=== PATIENT | male | born 1965 | race Hispanic/Latino ===

== ENCOUNTER 2020-02-13 17:39 | Emergency (ER) | payer BC ==
[2020-02-13] MEDS ORDERED: ONDANSETRON 4 MG/2 ML VIAL ONE (18:09)
[2020-02-13] MEDS ORDERED: MORPHINE 4 MG/ML SYR ONE ×3 (18:09→20:42)
--- NOTE | 2020-02-13 19:06 | RAD REPORT ---
EXAM DESCRIPTION: RAD - Chest Single View - 02/13/2020 6:32 pm CLINICAL HISTORY: fall, shoulder pain COMPARISON: None TECHNIQUE: AP portable chest image was obtained 02/13/2020 6:32 pm . FINDINGS: Lungs are clear. Heart and vasculature are normal. No measurable pleural effusion and no p neumothorax. Old left clavicle fracture remodeling noted in the midshaft. There is evidence for posts urgical change to the head of the clavicle which widens the left AC joint. Left femoral head is dislo cated and further detailed on separate report. No acute aortic findings suspected. IMPRESSION: No acute cardiopulmonary process. Left humerus dislocation separately reported.
--- NOTE | 2020-02-13 19:08 | RAD REPORT ---
EXAM DESCRIPTION: RAD - Shoulder Left 2 View - 02/13/2020 6:32 pm CLINICAL HISTORY: fall, shoulder pain COMPARISON: No comparisons TECHNIQUE: Internal and external rotation views of the left shoulder were obtained. FINDINGS: Left humeral head is dislocated medial and inferior to the glenohumeral joint, typical for anterior dislocation. No fracture of the proximal humerus identified. Old fracture remodeling presen t in the midshaft left clavicle with postsurgical changes present to the left head of the clavicle. N o abnormal soft tissue calcifications. IMPRESSION: Anterior dislocation left humerus. No fracture identified.
--- NOTE | 2020-02-13 19:41 | RAD REPORT ---
EXAM DESCRIPTION: RAD - Shoulder Left 2 View - 02/13/2020 7:05 pm CLINICAL HISTORY: post reduction COMPARISON: Left shoulder same date TECHNIQUE: Internal and external rotation views of the left shoulder were obtained. FINDINGS: Humerus has been reduced to anatomic position. No acute fracture changes identified. No change to the surgically altered AC joint. IMPRESSION: Successful reduction of the left humeral head anatomic position.
[2020-02-13] MEDS ORDERED: LIDOCAINE 1% MPF 30 ML VIAL ONE (19:43)
[2020-02-13] MEDS ORDERED: TETANUS & DIPHTHERIA TOX,ADULT 0.5 ML VIAL ONE (20:31)
--- NOTE | 2020-02-13 20:41 | EDPHYS ---
Physician Documentation [facility] Name: Edwin Maxwell Age: 54 yrs Sex: Male : 1965 Arrival Date: 02/13/2020 Time: 17:40 Bed 3 Private MD: ED Physician Nilo Serrano HPI: 02/12 17:58 This 54 yrs old Male presents to ER via EMS with complaints of shoulder pain, fall. jmm 17:58 Onset: The symptoms/episode began/occurred acutely, just prior to arrival. Associated jmm injuries: The patient sustained injury to the head, injury to the chest. This is a 54 year old male with a history of htn that presents to the ED with complaints of left shoulder pain after [place] Denies LOC. Abrasion noted to the left side of the head. . Historical: - Allergies: 17:45 No Known Allergies; em - PMHx: 17:45 Hypertension; em - PSHx: 17:45 None; em - Immunization history:: Last tetanus immunization: unknown. - Social history:: Smoking status: Patient denies any tobacco usage or history of. ROS: 17:58 Constitutional: Negative for fever, chills, and weight loss, Cardiovascular: Negative jmm for chest pain, palpitations, and edema, Respiratory: Negative for shortness of breath, cough, wheezing, and pleuritic chest pain. 17:58 MS/extremity: Positive for pain. 17:58 All other systems are negative. Exam: 17:58 Constitutional: This is a well developed, well nourished patient who is awake, alert, jmm and in no acute distress. 17:58 Eyes: EOMI, no conjunctival erythema appreciated ENT: Moist Mucus Membranes Neck: Trachea midline, Supple 17:58 Cardiovascular: Regular rate and rhythm. No edema appreciated Respiratory: Normal respirations, no respiratory distress appreciated Abdomen/GI: Non distended, soft Back: Normal ROM Skin: General appearance color normal 17:58 Head/face: abrasion noted to the left confucianism. 17:58 Chest/axilla: left clavicular tenderness. 17:58 Musculoskeletal/extremity: left shoulder held in adduction and internal rotation. 17:58 Skin: Appearance: Color: normal in color. 17:58 Neuro: Orientation: is normal, Mentation: is normal, Memory: is normal. 17:58 Psych: Behavior/mood is pleasant, cooperative. Vital Signs: 17:40 Pulse 60; Resp 18; Temp 98.4(O); Pulse Ox 99% on R/A; Weight 90.72 kg; Height 5 ft. 11 em in. (180.34 cm); Pain 10/10; 18:01 BP 139 / 86; iw 19:28 BP 128 / 78; Pulse 60; Resp 18; Pulse Ox 99% ; ea 21:00 BP 120 / 80; Pulse 60; Resp 18; Temp 97.8; Pulse Ox 98% ; ea 17:40 Body Mass Index 27.89 (90.72 kg, 180.34 cm) em Procedures: 20:37 Reduction: of the left shoulder, using traction, manipulation, Immobilized with [facility] shoulder immobilizer. Patient tolerated well. Post reduction film - reveals normal alignment. Laceration: 20:36 Wound Repair of 1cm ( 0.4in ) subcutaneous laceration to left hand. Distal [facility] neuro/vascular/tendon intact. Anesthesia: Local anesthetic administered with 1 mls of 1% lidocaine. Wound prep: Moderate cleansing with betadine by me. Skin closed with 2 5-0 Prolene using loosely approximated. Patient tolerated well. MDM: 17:40 Patient medically screened. [facility] 20:37 Data reviewed: vital signs, nurses notes. Counseling: I had a detailed discussion with [facility] the patient and/or guardian regarding: the historical points, exam findings, and any diagnostic results supporting the discharge/admit diagnosis, lab results, radiology results, the need for outpatient follow up, to return to the emergency department if symptoms worsen or persist or if there are any questions or concerns that arise at home. ED course: Patient given wound infection return precautions. Patient otherwise advised to follow up with ortho for further evaluation. Patient understood and agrees with the plan of care. . 02/12 17:43 Order name: Chest Single View XRAY; Complete Time: 19:11 [facility] 02/12 17:43 Order name: Shoulder Left (2 View) XRAY; Complete Time: 19:11 [facility] 02/12 18:44 Order name: Shoulder Left (2 View) XRAY; Complete Time: 19:58 [facility] 02/12 17:42 Order name: Saline Lock; Complete Time: 18:01 [facility] 02/12 18:45 Order name: Shoulder Immobilizer; Complete Time: 19:28 prudence Administered Medications: 18:00 Drug: Zofran (Ondansetron) 4 mg Route: IVP; Site: right antecubital; iw 19:00 Follow up: Response: No adverse reaction ea 18:01 Drug: morphine 4 mg Route: IVP; Site: right antecubital; iw 19:00 Follow up: Response: No adverse reaction; RASS: Alert and Calm (0) ea 18:24 Drug: morphine 4 mg Route: IVP; Site: right antecubital; iw 19:40 Follow up: Response: No adverse reaction; RASS: Alert and Calm (0) ea 20:12 Drug: Lidocaine (1 %) 20 ml {Note: administered by provider .} Volume: 20 ml; Route: rv Infiltration; 20:45 Drug: Tetanus-Diphtheria Toxoid Adult 0.5 ml {Life Skills Trainer: [employer]. Exp: ea 04/27/2021. Lot #: [id number]. } Route: IM; Site: right deltoid; 21:10 Follow up: Response: No adverse reaction ea 20:51 Drug: Doxycycline 100 mg Route: PO; ea 21:10 Follow up: Response: No adverse reaction ea 20:51 Drug: morphine 4 mg {Note: RASS 0.} Route: IVP; Site: right antecubital; ea 21:10 Follow up: Response: No adverse reaction; RASS: Alert and Calm (0) ea Disposition: 02/13 07:11 Co-signature as Attending Physician, Nilo Serrano MD I agree with the assessment and kdr plan of care. Disposition: 02/13/20 20:40 Discharged to Home. Impression: Other dislocation of left shoulder joint, Finger Laceration. - Condition is Stable. - Discharge Instructions: Shoulder Dislocation, Laceration Care, Adult. - Prescriptions for Doxycycline Hyclate 100 mg Oral Tablet - take 1 tablet by ORAL route every 12 hours; 20 tablet. - Medication Reconciliation Form, Thank You Letter, Antibiotic Education, Prescription Opioid Use form. - Follow up: Vel Rose MD; When: 2 - 3 days; Reason: Recheck today's complaints, Continuance of care, Re-evaluation by your physician. Signatures: Dispatcher [employer] Nilo Woods MD MD kdr Mickail, Joel, PA PA jmm Munoz, Edgar RN RN Bere Hernandez, RN RN Jasmina Rolon, RN RN Hayder Carr, RN RN rv Corrections: (The following items were deleted from the chart) 02/12 18:18 17:42 Head C Spine MPR Wo Con+CT.RAD.BRZ ordered. EDMS EDMS 21:14 20:40 02/13/2020 20:40 Discharged to Home. Impression: Other dislocation of left ea shoulder joint; Finger Laceration. Condition is Stable. Forms are Medication Reconciliation Form, Thank You Letter, Antibiotic Education, Prescription Opioid Use. Follow up: Vel Rose; When: 2 - 3 days; Reason: Recheck today's complaints, Continuance of care, Re-evaluation by your physician. prudence
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
[2020-02-13] MEDS ORDERED: DOXYCYCLINE 100 MG CAP PO ONE (20:42)
== END 2020-02-13 21:14 | disposition home or self-care (01) ==
LOC: EDBD → ER 17:39
PROC: 0JQK0ZZ Repair Left Hand Subcutaneous Tissue and Fascia, Open Approach (ICD-10-PCS; principal; 2020-02-13)
PROC: 0RSKXZZ Reposition Left Shoulder Joint, External Approach (ICD-10-PCS; 2020-02-13)
DX: S43.085A Other dislocation of left shoulder joint, initial encounter (principal); S61.412A Laceration without foreign body of left hand, initial encounter; W19.XXXA Unspecified fall, initial encounter; Y93.18 Activity, surfing, windsurfing and boogie boarding; Y92.832 Beach as the place of occurrence of the external cause; Z23 Encounter for immunization; I10 Essential (primary) hypertension
CPT/HCPCS: 71045; 73030 ×2; 90471; 90714; 96375; 96374; 99284; 12001; 23650; J2405